=== PATIENT | female | born 1960 | race Caucasian/White ===

== ENCOUNTER 2016-07-19 11:07 | Inpatient (IN) | payer MEDICAID ==
[~2016-07-19] VITALS: Ht 165.1 cm; Wt 78.7 kg
[~2016-07-19 11:07] MED LIST: HYDR-3546 PO; LORA-655 PO; ZOLP-158 PO
[2016-07-19 11:51] LABS: Urine Bilirubin Negative (Negative); Urine Blood Negative /uL (Negative); Urine Color Yellow (Yellow); Urine Glucose Normal (Normal); Urine Ketone Negative (Negative); Urine Mucus FEW (None Seen); Urine Nitrite Negative (Negative); Urine RBC 1 /hpf (0 - 4); Urine Squamous Epithelial Cell FEW /hpf (<5); Urine Urobilinogen Normal (Negative)
[2016-07-19 11:59] LABS: Basophils # (auto) 0.1 uL; Basophils % (auto) 0.5 % (0.0-2.0); Eosinophils # (auto) 0.2 uL; Eosinophils % (auto) 1.9 % (0.0-7.0); Hematocrit 48.1 % (36.0-46.0); Hemoglobin 15.9 g/dL (12.2-16.2); Lymphocytes # (auto) 1.9 uL; Lymphocytes % (auto) 18.4 % (10.0-50.0); Mean Corpuscular Hgb Conc. 33.1 g/dL (32.0-36.0); Mean Corpuscular Volume 87.8 fL (80.0-100.0); Mean Platelet Volume 9.5 fL (7.4-10.4); Monocytes # (auto) 0.4 uL; Neutrophils # (auto) 7.8 uL; Neutrophils % (auto) 75.2 % (37.0-80.0); Platelet Count (auto) 295 10^3/uL (140-450); White Blood Cell 10.4 10^3/uL (4.4-10.8)
[2016-07-19 12:19] LABS: Albumin 3.6 g/dL (3.4-5.0); Anion Gap 8 (5-15); Aspartate Aminotransferase 21 U/L (15-37); BUN/Creatinine Ratio 14.8; Blood Urea Nitrogen 13 mg/dL (7-18); Carbon Dioxide 25 mmol/L (21-32); Chloride 108 mmol/L (98-107); GFR African American 86 mL/min; GFR Non-African American 71 mL/min; Glucose 113 mg/dL (74-106); Magnesium 2.2 mg/dL (1.6-2.6); Potassium 3.8 mmol/L (3.5-5.1); Sodium 141 mmol/L (136-145)
[2016-07-19 12:23] LABS: Alkaline Phosphatase 118 U/L (45-117); Bilirubin, Total 0.4 mg/dL (0.2-1.0); Total Protein 7.5 g/dL (6.4-8.2)
[2016-07-19] MEDS ORDERED: PANTOPRAZOLE SODIUM 40 MG/10 ML VIAL IV STA (13:10)
[2016-07-19] MEDS ORDERED: HYDROmorphone HCL 2 MG/ML VL IV ONE (13:15)
[2016-07-19] MEDS ORDERED: SODIUM CHLORIDE 0.9% 1,000 ML IV ONE (13:15)
[2016-07-19] MEDS ORDERED: ONDANSETRON HCL 4 MG/2 ML VIAL IV ONE (13:15)
[2016-07-19 14:00] LABS: INR 1.01 (0.9-1.15); Partial Thromboplastin Time 26.4 sec (22.64-33.71); Prothrombin Time 10.9 sec (9.37-12.3)
[2016-07-19] MEDS ORDERED: LACTULOSE 20Gm/30ML SOLN PO PRN (15:15)
[2016-07-19] MEDS ORDERED: cefTRIAXone 1GM/50ML D5W 50 ML IV ONE (15:15)
[2016-07-19] MEDS ORDERED: ACETAMINOPHEN 500 MG TAB PO PRN (15:15)
[2016-07-19] MEDS ORDERED: ZOLPIDEM TARTRATE 5 MG TAB PO PRN (15:15)
[2016-07-19] MEDS ORDERED: HYDROcodone-ACET 5/325MG TAB PO PRN (15:15)
[2016-07-19] MEDS ORDERED: MORPHINE SULF INJ 2 MG/ML SYRINGE 1ML IV PRN (15:15)
[2016-07-19] MEDS ORDERED: LORazepam 0.5 MG TAB PO PRN (15:15)
[2016-07-19] MEDS ORDERED: NITROGLYCERIN 0.4 MG SL TAB SL PRN (15:15)
[2016-07-19] MEDS ORDERED: ENOXAPARIN SOD 40 MG/0.4 ML SYRINGE SC ONE (15:30)
[2016-07-19] MEDS: MORPHINE SULF INJ 2 MG/ML SYRINGE 1ML IV PRN ×2 (15:47→20:30)
[2016-07-19] MEDS: SODIUM CHLORIDE 0.9% 1,000 ML IV SCH ×2 (15:47→23:11)
[2016-07-19] MEDS: ONDANSETRON HCL 4 MG/2 ML VIAL IV PRN ×2 (15:47→20:41)
[2016-07-19] MEDS ORDERED: NICOTINE 21MG/24 HR TOPICAL PATCH TD ONE (16:30)
[2016-07-19] MEDS: metroNIDAZOLE 500MG/100ML 100 ML IV SCH (18:02)
[2016-07-19 20:00] VITALS: BP 103/51
[2016-07-19 20:35] VITALS: BP 103/51
[2016-07-19] MEDS ORDERED: ALBUTEROL SULF 2.5 MG/0.5ML(0.5%) NEB SOLN NEB PRN (21:15)
[2016-07-19] MEDS: methylPREDNISolone SOD SUCC 40 MG/ML VL IV SCH (21:51)
[2016-07-19 22:00] VITALS: BP 103/51
[2016-07-20] MEDS: metroNIDAZOLE 500MG/100ML 100 ML IV SCH ×3 (00:02→11:52)
[2016-07-20] MEDS: MORPHINE SULF INJ 2 MG/ML SYRINGE 1ML IV PRN ×4 (00:47→14:04)
[2016-07-20] MEDS: ONDANSETRON HCL 4 MG/2 ML VIAL IV PRN ×4 (00:47→14:04)
[2016-07-20] MEDS ORDERED: FLUT1SPR5 (01:30)
[2016-07-20] MEDS ORDERED: OMEP20CA5 PO (01:30)
[2016-07-20] MEDS ORDERED: BUP75T PO (01:30)
[2016-07-20] MEDS ORDERED: AMOX500T86 PO (01:30)
[2016-07-20] MEDS ORDERED: NOR5T PO (01:30)
[2016-07-20 05:00] VITALS: BP 114/55
[2016-07-20 06:22] LABS: Basophils # (auto) 0 uL; Eosinophils # (auto) 0 uL; Eosinophils % (auto) 0.1 % (0.0-7.0); Hematocrit 41.9 % (36.0-46.0); Hemoglobin 13.8 g/dL (12.2-16.2); Lymphocytes # (auto) 0.8 uL; Lymphocytes % (auto) 10.8 % (10.0-50.0); Mean Corpuscular Hemoglobin 29.1 pg (28.0-32.0); Mean Corpuscular Volume 88.3 fL (80.0-100.0); Mean Platelet Volume 9.8 fL (7.4-10.4); Monocytes # (auto) 0.1 uL; Monocytes % (auto) 1.3 % (0.0-12.0); Neutrophils # (auto) 6.8 uL; Neutrophils % (auto) 87.8 % (37.0-80.0); Platelet Count (auto) 234 10^3/uL (140-450); Red Cell Distribution Width 13.7 % (11.6-16.0); White Blood Cell 7.8 10^3/uL (4.4-10.8)
[2016-07-20 06:37] LABS: Potassium 3.9 mmol/L (3.5-5.1)
[2016-07-20 06:49] LABS: Albumin 3.3 g/dL (3.4-5.0); BUN/Creatinine Ratio 9.9; Bilirubin, Total 0.3 mg/dL (0.2-1.0); Calcium 8.5 mg/dL (8.5-10.1); Total Protein 6.5 g/dL (6.4-8.2)
[2016-07-20] MEDS: IPRATROPIUM BROM 0.5 MG/2.5ML INH SOL NEB SCH ×2 (06:58→11:51)
[2016-07-20] MEDS: ALBUTEROL SULF 2.5 MG/0.5ML(0.5%) NEB SOLN NEB SCH ×2 (06:58→11:51)
[2016-07-20] MEDS: SODIUM CHLORIDE 0.9% 1,000 ML IV SCH (07:09)
[2016-07-20] MEDS: methylPREDNISolone SOD SUCC 40 MG/ML VL IV SCH (08:54)
[2016-07-20 09:00] VITALS: BP 112/59
[2016-07-20] MEDS ORDERED: cefTRIAXone 1GM/50ML D5W 50 ML IV SCH (09:00)
[2016-07-20] MEDS ORDERED: ENOXAPARIN SOD 40 MG/0.4 ML SYRINGE SC SCH (10:00)
[2016-07-20] MEDS ORDERED: PANTOPRAZOLE 40 MG TAB PO SCH (10:00)
[2016-07-20] MEDS ORDERED: NICOTINE 21MG/24 HR TOPICAL PATCH TD SCH (10:00)
[2016-07-20 13:00] VITALS: BP 114/63
[2016-07-20 13:44] VITALS: BP 112/59
[2016-07-20 17:00] VITALS: BP 103/51
[2016-07-20 17:10] VITALS: BP 103/51
== END 2016-07-20 18:42 | disposition home or self-care (01) | DRG 249 ==
LOC: ER 11:07 → TELE 11:08 → TELE-CENTR 19:41
PROVIDERS: ADMIT Internal Medicine; ATTEND Internal Medicine
DX: K52.9 Noninfective gastroenteritis and colitis, unspecified (principal); J44.1 Chronic obstructive pulmonary disease with (acute) exacerbation; E78.5 Hyperlipidemia, unspecified; F17.210 Nicotine dependence, cigarettes, uncomplicated; F41.9 Anxiety disorder, unspecified; H66.90 Otitis media, unspecified, unspecified ear; K21.9 Gastro-esophageal reflux disease without esophagitis; K42.9 Umbilical hernia without obstruction or gangrene; Z80.0 Family history of malignant neoplasm of digestive organs; Z82.49 Family history of ischemic heart disease and other diseases of the circulatory system; Z85.068 Personal history of other malignant neoplasm of small intestine; Z83.3 Family history of diabetes mellitus; Z87.11 Personal history of peptic ulcer disease; Z90.710 Acquired absence of both cervix and uterus; Z88.8 Allergy status to other drugs, medicaments and biological substances; Z91.018 Allergy to other foods; Z72.0 Tobacco use
CPT/HCPCS: 36415; 71010; 74176; 80053; 81001; 82150; 82270; 82378; 83690; 83735; 84484; 85025; 85610; 85652; 85730; 86141; 87493; 93005; 94640; 94761; 96361; 96365; 96372; 96375; C9113; J0696; J2405; J3490

== ENCOUNTER 2016-09-14 07:24 | Emergency (ER) | payer MEDICAID ==
[~2016-09-14] VITALS: Ht 165.1 cm; Wt 71.7 kg
[~2016-09-14 07:24] MED LIST changes: +AMOX500T86 PO; +BUP75T PO; +FLUT1SPR5; +HYDR-4663 PO; +OMEP20CA74 PO
[2016-09-14 07:38] VITALS: BP 135/87
[2016-09-14] MEDS ORDERED: PROMETHAZINE HCL 25 MG/ML 1ML IM ONE (09:30)
[2016-09-14] MEDS ORDERED: MORPHINE SULFATE 10 MG/ML INJ 1ML SDV IM ONE (09:30)
== END 2016-09-14 10:06 | disposition home or self-care (01) ==
LOC: ER 07:28
DX: S39.012A Strain of muscle, fascia and tendon of lower back, initial encounter (principal); F17.210 Nicotine dependence, cigarettes, uncomplicated; E78.5 Hyperlipidemia, unspecified; Z87.11 Personal history of peptic ulcer disease; Z90.710 Acquired absence of both cervix and uterus; Z88.6 Allergy status to analgesic agent; Z88.8 Allergy status to other drugs, medicaments and biological substances; V43.52XA Car driver injured in collision with other type car in traffic accident, initial encounter; Y93.89 Activity, other specified; Y99.8 Other external cause status; Y92.488 Other paved roadways as the place of occurrence of the external cause
CPT/HCPCS: 96372; 99284; J2270; J2550

== ENCOUNTER 2016-09-18 07:05 | Emergency (ER) | payer MEDICAID ==
[~2016-09-18] VITALS: Ht 157.5 cm; Wt 73.0 kg
[2016-09-18 07:21] VITALS: BP 113/87
[2016-09-18] MEDS ORDERED: MORPHINE SULFATE 4 MG/ML SYRG IM ONE (08:00)
[2016-09-18] MEDS ORDERED: ONDANSETRON ODT 4 MG TAB PO ONE (08:15)
== END 2016-09-18 08:58 | disposition home or self-care (01) ==
LOC: ER 07:05
DX: G89.29 Other chronic pain (principal); M54.5 Low back pain; F17.210 Nicotine dependence, cigarettes, uncomplicated; Z88.8 Allergy status to other drugs, medicaments and biological substances; Z87.11 Personal history of peptic ulcer disease
CPT/HCPCS: 96372; 99283; J2270; Q0162

== ENCOUNTER 2016-09-25 07:34 | Inpatient (IN) | payer MEDICAID ==
[~2016-09-25] VITALS: Ht 165.1 cm; Wt 76.0 kg
[2016-09-25 08:17] LABS: Basophils # (auto) 0 uL; Basophils % (auto) 0.4 % (0.0-2.0); CONDITION Y; Eosinophils # (auto) 0.2 uL; Eosinophils % (auto) 1.5 % (0.0-7.0); Hematocrit 45.7 % (36.0-46.0); Hemoglobin 15.5 g/dL (12.2-16.2); Lymphocytes # (auto) 2.3 uL; Lymphocytes % (auto) 22.2 % (10.0-50.0); Mean Corpuscular Hemoglobin 29.8 pg (28.0-32.0); Mean Corpuscular Hgb Conc. 33.9 g/dL (32.0-36.0); Mean Corpuscular Volume 87.9 fL (80.0-100.0); Mean Platelet Volume 9.1 fL (7.4-10.4); Monocytes # (auto) 0.6 uL; Neutrophils # (auto) 7.2 uL; Neutrophils % (auto) 69.9 % (37.0-80.0); Platelet Count (auto) 296 10^3/uL (140-450); Red Cell Distribution Width 13.3 % (11.6-16.0); White Blood Cell 10.3 10^3/uL (4.4-10.8)
[2016-09-25 08:45] LABS: Albumin 3.7 g/dL (3.4-5.0); Bilirubin, Total 0.4 mg/dL (0.2-1.0); Calcium 8.9 mg/dL (8.5-10.1); Total Protein 7.4 g/dL (6.4-8.2)
[2016-09-25 09:17] LABS: Urine RBC None Seen /hpf (0 - 4)
[2016-09-25 09:37] LABS: Urine Bilirubin Negative (Negative); Urine Blood Negative /uL (Negative); Urine Color Yellow (Yellow); Urine Glucose Normal (Normal); Urine Ketone Negative (Negative); Urine Nitrite Negative (Negative); Urine Squamous Epithelial Cell FEW /hpf (<5); Urine Urobilinogen Normal (Negative); Urine pH 5.5 (5.0-8.0)
[2016-09-25] MEDS ORDERED: NALBUPHINE HCL 10 MG/1ml INJECTION IV ONE (10:15)
[2016-09-25] MEDS ORDERED: ONDANSETRON HCL 4 MG/2 ML VIAL IV ONE (10:15)
[2016-09-25] MEDS ORDERED: HYDROmorphone HCL 2 MG/ML VL IV ONE (12:30)
[2016-09-25] MEDS ORDERED: ONDANSETRON HCL 4 MG/2 ML VIAL ONE (14:10)
[2016-09-25] MEDS: SODIUM CHLORIDE 0.9% 1,000 ML IV SCH (15:13)
[2016-09-25] MEDS ORDERED: metroNIDAZOLE 500MG/100ML 100 ML IV ONE (15:15)
[2016-09-25] MEDS ORDERED: cefTRIAXone 1GM/50ML D5W 50 ML IV ONE (15:15)
[2016-09-25] MEDS ORDERED: ACETAMINOPHEN 325 MG TAB PO PRN (15:15)
[2016-09-25] MEDS ORDERED: LORazepam 0.5 MG TAB PO PRN (15:15)
[2016-09-25] MEDS ORDERED: MORPHINE SULF INJ 2 MG/ML SYRINGE 1ML IV PRN (15:15)
[2016-09-25] MEDS ORDERED: PANTOPRAZOLE 40 MG TAB PO SCH (15:15)
[2016-09-25] MEDS ORDERED: NITROGLYCERIN 0.4 MG SL TAB SL PRN (15:15)
[2016-09-25] MEDS: buPROPion HCL 75 MG TAB PO SCH (15:18)
[2016-09-25] MEDS: MULTIPLE VITAMIN TAB PO SCH (15:47)
[2016-09-25] MEDS: MORPHINE SULF INJ 2 MG/ML SYRINGE 1ML IV PRN ×2 (16:20→20:41)
[2016-09-25 17:39] LABS: INR 1.03 (0.9-1.15); Prothrombin Time 11.2 sec (9.37-12.3)
[2016-09-25 18:31] LABS: Hematocrit 43.3 % (36.0-46.0); Hemoglobin 14.4 g/dL (12.2-16.2)
[2016-09-25] MEDS: metroNIDAZOLE 500MG/100ML 100 ML IV SCH (21:58)
[2016-09-25] MEDS: PANTOPRAZOLE 40 MG TAB PO SCH (21:59)
[2016-09-25] MEDS ORDERED: FAMOTIDINE 20 MG TAB PO SCH (22:00)
[2016-09-25] MEDS: FLUTICASONE PROP NASAL SPR 0.05 % (50MCG) 16GM EACHNOSTRI SCH (22:25)
[2016-09-25 22:40] VITALS: BP 110/66
[2016-09-25] MEDS: ZOLPIDEM TARTRATE 5 MG TAB PO PRN (23:50)
[2016-09-26 00:10] VITALS: BP 110/66
[2016-09-26] MEDS: MORPHINE SULF INJ 2 MG/ML SYRINGE 1ML IV PRN ×5 (02:05→23:20)
[2016-09-26] MEDS: HYDROcodone-ACET 5/325MG TAB PO PRN ×2 (04:36→16:32)
[2016-09-26 05:14] VITALS: BP 121/69
[2016-09-26] MEDS: metroNIDAZOLE 500MG/100ML 100 ML IV SCH ×3 (06:06→21:17)
[2016-09-26 07:20] LABS: Basophils # (auto) 0 uL; Basophils % (auto) 0.1 % (0.0-2.0); CONDITION Y; Eosinophils # (auto) 0.2 uL; Eosinophils % (auto) 2.1 % (0.0-7.0); Hematocrit 42.1 % (36.0-46.0); Hemoglobin 14.2 g/dL (12.2-16.2); Lymphocytes # (auto) 2.2 uL; Lymphocytes % (auto) 25.8 % (10.0-50.0); Mean Corpuscular Hemoglobin 29.9 pg (28.0-32.0); Mean Corpuscular Hgb Conc. 33.8 g/dL (32.0-36.0); Mean Corpuscular Volume 88.5 fL (80.0-100.0); Mean Platelet Volume 9.2 fL (7.4-10.4); Monocytes # (auto) 0.7 uL; Monocytes % (auto) 7.7 % (0.0-12.0); Neutrophils # (auto) 5.6 uL; Neutrophils % (auto) 64.3 % (37.0-80.0); Platelet Count (auto) 271 10^3/uL (140-450); Red Cell Distribution Width 13.6 % (11.6-16.0); White Blood Cell 8.7 10^3/uL (4.4-10.8)
[2016-09-26] MEDS: SODIUM CHLORIDE 0.9% 1,000 ML IV SCH (07:53)
[2016-09-26 08:06] LABS: Albumin 3.3 g/dL (3.4-5.0); Bilirubin, Total 0.4 mg/dL (0.2-1.0); Calcium 8.8 mg/dL (8.5-10.1); Potassium 3.9 mmol/L (3.5-5.1); Total Protein 6.7 g/dL (6.4-8.2)
[2016-09-26] MEDS: cefTRIAXone 1GM/50ML D5W 50 ML IV SCH (08:49)
[2016-09-26 08:59] VITALS: BP 101/51
[2016-09-26] MEDS: FLUTICASONE PROP NASAL SPR 0.05 % (50MCG) 16GM EACHNOSTRI SCH ×2 (10:00→21:17)
[2016-09-26] MEDS: MULTIPLE VITAMIN TAB PO SCH (10:00)
[2016-09-26] MEDS: buPROPion HCL 75 MG TAB PO SCH (10:00)
[2016-09-26] MEDS: PANTOPRAZOLE 40 MG TAB PO SCH ×2 (10:00→21:17)
[2016-09-26] MEDS: BOOST PLUS 8 ounce PO SCH ×2 (11:51→18:00)
[2016-09-26] MEDS: ONDANSETRON HCL 4 MG/2 ML VIAL IV PRN ×3 (11:51→23:21)
[2016-09-26 13:00] VITALS: BP 105/72
[2016-09-26] MEDS ORDERED: fentaNYL CITRATE 100 MCG/2 ML VL ONE (13:09)
[2016-09-26] MEDS ORDERED: PROPOFOL 10 MG/ML 20 ML IV ONE (13:10)
[2016-09-26] MEDS ORDERED: MIDAZOLAM HCL 1MG/1ML-2 ML VIAL ONE (13:10)
[2016-09-26] MEDS ORDERED: hydrALAZINE HCL 20 MG/ML VL IV PRN (13:45)
[2016-09-26] MEDS ORDERED: ONDANSETRON HCL 4 MG/2 ML VIAL IV ONE (13:45)
[2016-09-26] MEDS ORDERED: ePHEDrine SULFATE 50 MG/ML AMP IV PRN (13:45)
[2016-09-26] MEDS ORDERED: fentaNYL CITRATE 100 MCG/2 ML VL IV ONE (14:00)
[2016-09-26 17:00] VITALS: BP 116/71
[2016-09-26 21:30] VITALS: BP 116/79
[2016-09-26] MEDS: ZOLPIDEM TARTRATE 5 MG TAB PO PRN (21:51)
[2016-09-27] MEDS: SODIUM CHLORIDE 0.9% 1,000 ML IV SCH (00:34)
[2016-09-27 05:00] VITALS: BP 147/59
[2016-09-27] MEDS: MORPHINE SULF INJ 2 MG/ML SYRINGE 1ML IV PRN ×2 (05:02→09:23)
[2016-09-27] MEDS: ONDANSETRON HCL 4 MG/2 ML VIAL IV PRN ×2 (05:03→09:22)
[2016-09-27] MEDS: metroNIDAZOLE 500MG/100ML 100 ML IV SCH ×2 (05:34→14:00)
[2016-09-27 08:30] VITALS: BP 96/65
[2016-09-27] MEDS: FLUTICASONE PROP NASAL SPR 0.05 % (50MCG) 16GM EACHNOSTRI SCH (09:08)
[2016-09-27] MEDS: cefTRIAXone 1GM/50ML D5W 50 ML IV SCH (09:08)
[2016-09-27] MEDS: PANTOPRAZOLE 40 MG TAB PO SCH (09:09)
[2016-09-27] MEDS: buPROPion HCL 75 MG TAB PO SCH (09:09)
[2016-09-27] MEDS: MULTIPLE VITAMIN TAB PO SCH (09:09)
[2016-09-27] MEDS: BOOST PLUS 8 ounce PO SCH ×2 (09:13→12:00)
[2016-09-27 09:35] LABS: Basophils # (auto) 0.1 uL; CONDITION Y; Eosinophils # (auto) 0.1 uL; Eosinophils % (auto) 1.8 % (0.0-7.0); Hematocrit 42.2 % (36.0-46.0); Hemoglobin 14.1 g/dL (12.2-16.2); Lymphocytes # (auto) 1.8 uL; Lymphocytes % (auto) 24.2 % (10.0-50.0); Mean Corpuscular Hemoglobin 29.6 pg (28.0-32.0); Mean Corpuscular Hgb Conc. 33.4 g/dL (32.0-36.0); Mean Corpuscular Volume 88.5 fL (80.0-100.0); Mean Platelet Volume 9.2 fL (7.4-10.4); Monocytes # (auto) 0.5 uL; Monocytes % (auto) 6.7 % (0.0-12.0); Neutrophils # (auto) 4.9 uL; Neutrophils % (auto) 66.3 % (37.0-80.0); Platelet Count (auto) 224 10^3/uL (140-450); Red Cell Distribution Width 13.3 % (11.6-16.0); White Blood Cell 7.4 10^3/uL (4.4-10.8)
[2016-09-27 09:56] LABS: Albumin 3.3 g/dL (3.4-5.0); BUN/Creatinine Ratio 15.2; Bilirubin, Total 0.3 mg/dL (0.2-1.0); Calcium 8.6 mg/dL (8.5-10.1); Potassium 3.6 mmol/L (3.5-5.1); Total Protein 6.6 g/dL (6.4-8.2)
[2016-09-27 12:00] VITALS: BP 114/57
[2016-09-27] MEDS ORDERED: PANT40TA2 PO (13:02)
[2016-09-27] MEDS ORDERED: IPRIH INH (14:26)
[2016-09-27 15:42] VITALS: BP 96/65
[2016-09-27 16:45] VITALS: BP 124/73
[2016-09-29 16:06] LABS: Endomysial IgA Antibody Negative (Negative)
[2016-10-02 21:43] LABS: Fecal Fats Neutral Normal (.); Fecal Fats Total Normal (.)
== END 2016-09-27 16:05 | disposition home or self-care (01) | DRG 251 ==
LOC: ER 07:34 → TELE 07:35 → TELE-WESTW 22:29 → WEST WING 09-27 01:33
PROVIDERS: ADMIT Internal Medicine; ATTEND Nurse Practitioner Acute Care
PROC: 0DB68ZX Excision of Stomach, Via Natural or Artificial Opening Endoscopic, Diagnostic (ICD-10-PCS; 2016-09-26)
PROC: 0DB98ZX Excision of Duodenum, Via Natural or Artificial Opening Endoscopic, Diagnostic (ICD-10-PCS; principal; 2016-09-26 13:10)
DX: R10.9 Unspecified abdominal pain (principal); E44.0 Moderate protein-calorie malnutrition; K27.9 Peptic ulcer, site unspecified, unspecified as acute or chronic, without hemorrhage or perforation; E78.5 Hyperlipidemia, unspecified; F41.9 Anxiety disorder, unspecified; G89.29 Other chronic pain; K52.9 Noninfective gastroenteritis and colitis, unspecified; F17.210 Nicotine dependence, cigarettes, uncomplicated; G89.4 Chronic pain syndrome; Z80.0 Family history of malignant neoplasm of digestive organs; Z82.49 Family history of ischemic heart disease and other diseases of the circulatory system; Z83.3 Family history of diabetes mellitus; Z85.068 Personal history of other malignant neoplasm of small intestine; Z90.49 Acquired absence of other specified parts of digestive tract; Z88.6 Allergy status to analgesic agent; Z88.8 Allergy status to other drugs, medicaments and biological substances; Z90.710 Acquired absence of both cervix and uterus; Z71.89 Other specified counseling; Z68.27 Body mass index [BMI] 27.0-27.9, adult
CPT/HCPCS: 36415; 43239; 71010; 72125; 74176; 80053; 80307; 81001; 82705; 82784; 83516; 83690; 85014; 85018; 85025; 85610; 86141; 86255; 87045; 87493; 87899; 93005; 96365; 96368; 96375; J0696; J2250; J2405; J2704; J3490

== ENCOUNTER 2017-05-27 03:23 | Emergency (ER) | payer MEDICAID ==
[~2017-05-27] VITALS: Ht 165.1 cm; Wt 71.7 kg
[~2017-05-27 03:23] MED LIST changes: -HYDR-4663 PO; +HYDR-4683 PO; +IPRIH INH; +PANT40TA2 PO
[2017-05-27 03:36] VITALS: BP 119/70
[2017-05-27 04:35] LABS: Basophils # (auto) 0 uL; Basophils % (auto) 0.2 % (0.0-2.0); Eosinophils # (auto) 0.2 uL; Eosinophils % (auto) 1.8 % (0.0-7.0); Hematocrit 41.4 % (36.0-46.0); Lymphocytes # (auto) 2.4 uL; Mean Corpuscular Hemoglobin 29.5 pg (28.0-32.0); Mean Corpuscular Hgb Conc. 33.9 g/dL (32.0-36.0); Monocytes # (auto) 1.3 uL; Monocytes % (auto) 12.4 % (0.0-12.0); Neutrophils # (auto) 6.8 uL; Neutrophils % (auto) 63.6 % (37.0-80.0); Platelet Count (auto) 196 10^3/uL (140-450); Red Blood Cells 4.76 10^6/uL (4.0-5.20); Red Cell Distribution Width 13.3 % (11.8-14.3); White Blood Cell 10.7 10^3/uL (4.4-10.8)
[2017-05-27 04:39] LABS: Urine Bacteria NONE SEEN /hpf (None Seen); Urine Blood 1+ /uL (Negative); Urine Mucus FEW (None Seen); Urine WBC 1 /hpf (0 - 5)
[2017-05-27 04:55] LABS: INR 0.98 (0.9-1.15); Partial Thromboplastin Time 28.9 sec (22.64-33.71); Prothrombin Time 10.7 sec (9.37-12.3)
[2017-05-27 05:08] LABS: Alanine Aminotransferase 30 U/L (13-56); Albumin 3.5 g/dL (3.4-5.0); Alkaline Phosphatase 142 U/L (45-117); Amylase 34 U/L (25-115); Anion Gap 9 (5-15); Aspartate Aminotransferase 28 U/L (15-37); Bilirubin, Total 0.5 mg/dL (0.2-1.0); Blood Urea Nitrogen 11 mg/dL (7-18); Calcium 8.7 mg/dL (8.5-10.1); Carbon Dioxide 23 mmol/L (21-32); Chloride 104 mmol/L (98-107); GFR African American 131 mL/min; GFR Non-African American 108 mL/min; Glucose 83 mg/dL (74-106); Lipase 188 U/L (73-393); Magnesium 2.4 mg/dL (1.6-2.6); Potassium 4.2 mmol/L (3.5-5.1); Sodium 136 mmol/L (136-145); Total Protein 7.5 g/dL (6.4-8.2)
== END 2017-05-27 05:49 | disposition left against medical advice (07) ==
LOC: ER 03:24
DX: R06.02 Shortness of breath (principal); Z53.21 Procedure and treatment not carried out due to patient leaving prior to being seen by health care provider
CPT/HCPCS: 36415; 71045; 74176; 80053; 81001; 82150; 83690; 83735; 83880; 84484; 85025; 85610; 85730; 93005

== ENCOUNTER 2017-06-17 09:15 | Emergency (ER) | payer MEDICAID ==
[~2017-06-17] VITALS: Ht 165.1 cm; Wt 74.4 kg
[2017-06-17 09:53] VITALS: BP 154/78
[2017-06-17 09:54] LABS: Urine Bacteria NONE SEEN /hpf (None Seen); Urine Blood Negative /uL (Negative); Urine Mucus FEW (None Seen); Urine Specific Gravity 1.028 (1.001-1.035); Urine WBC 1 /hpf (0 - 5)
[2017-06-17] MEDS ORDERED: ONDANSETRON ODT 4 MG TAB PO ONE (10:15)
[2017-06-17] MEDS ORDERED: NALBUPHINE HCL 10 MG/1ml INJECTION IM ONE (10:15)
== END 2017-06-17 11:19 | disposition home or self-care (01) ==
LOC: ER 09:15
DX: M17.11 Unilateral primary osteoarthritis, right knee (principal); E78.5 Hyperlipidemia, unspecified; F17.210 Nicotine dependence, cigarettes, uncomplicated; Z87.11 Personal history of peptic ulcer disease; Z88.6 Allergy status to analgesic agent; Z88.8 Allergy status to other drugs, medicaments and biological substances; Z90.710 Acquired absence of both cervix and uterus
CPT/HCPCS: 73562; 81001; 96372; 99285; J2300; Q0162

== ENCOUNTER 2017-06-18 15:29 | Emergency (ER) | payer MEDICAID ==
[~2017-06-18] VITALS: Ht 167.6 cm; Wt 73.0 kg
[2017-06-18 17:21] VITALS: BP 132/68
[2017-06-18] MEDS ORDERED: ACETAMINOPHEN 500 MG TAB PO ONE (18:00)
[2017-06-18] MEDS ORDERED: ONDANSETRON ODT 4 MG TAB PO ONE (18:00)
== END 2017-06-18 18:41 | disposition home or self-care (01) ==
LOC: EDBD 15:29 → EDUNIT# 15:29 → ER 15:33
DX: M54.9 Dorsalgia, unspecified (principal); F17.210 Nicotine dependence, cigarettes, uncomplicated; F12.10 Cannabis abuse, uncomplicated; Z90.710 Acquired absence of both cervix and uterus; Z88.8 Allergy status to other drugs, medicaments and biological substances; V49.49XA Driver injured in collision with other motor vehicles in traffic accident, initial encounter; Y93.89 Activity, other specified; Y99.8 Other external cause status; Y92.410 Unspecified street and highway as the place of occurrence of the external cause
CPT/HCPCS: 72070; 99284; Q0162

== ENCOUNTER 2018-05-14 00:55 | Inpatient (IN) | payer MEDICAID ==
[~2018-05-14] VITALS: Ht 165.1 cm; Wt 72.6 kg
[2018-05-14] MEDS ORDERED: MORPHINE SULFATE 4 MG/ML SYR/VIAL IV ONE ×2 (01:30→02:45)
[2018-05-14] MEDS ORDERED: LORazepam 2MG/ML-1ML VIAL IV ONE (01:30)
[2018-05-14 01:37] LABS: Basophils # (auto) 0.1 uL; Basophils % (auto) 0.5 % (0.0-2.0); Eosinophils # (auto) 0.2 uL; Eosinophils % (auto) 1.6 % (0.0-7.0); Hematocrit 46.9 % (36.0-46.0); Hemoglobin 15.9 g/dL (12.2-16.2); Lymphocytes # (auto) 2.5 uL; Lymphocytes % (auto) 23.3 % (10.0-50.0); Mean Corpuscular Hemoglobin 30.3 pg (28.0-32.0); Mean Corpuscular Hgb Conc. 33.9 g/dL (32.0-36.0); Mean Corpuscular Volume 89.6 fL (80.0-100.0); Monocytes # (auto) 0.6 uL; Monocytes % (auto) 5.9 % (0.0-12.0); Neutrophils # (auto) 7.5 uL; Neutrophils % (auto) 68.7 % (37.0-80.0); Platelet Count (auto) 239 10^3/uL (140-450); Red Blood Cells 5.24 10^6/uL (4.0-5.20); Red Cell Distribution Width 13.7 % (11.8-14.3); White Blood Cell 10.9 10^3/uL (4.4-10.8)
[2018-05-14 01:42] LABS: Urine Amorphous Crystal FEW /hpf (None Seen); Urine Bacteria FEW /hpf (None Seen); Urine Blood Negative /uL (Negative); Urine Specific Gravity 1.003 (1.001-1.035); Urine WBC <1 /hpf (0 - 5)
[2018-05-14 01:54] LABS: INR 0.97 (0.9-1.15)
[2018-05-14 01:57] LABS: Alanine Aminotransferase 33 U/L (13-56); Albumin 3.6 g/dL (3.4-5.0); Anion Gap 6 (5-15); Aspartate Aminotransferase 25 U/L (15-37); BUN/Creatinine Ratio 19.3; Blood Urea Nitrogen 16 mg/dL (7-18); Calcium 8.6 mg/dL (8.5-10.1); Carbon Dioxide 29 mmol/L (21-32); Chloride 108 mmol/L (98-107); GFR African American 91 mL/min; GFR Non-African American 76 mL/min; Glucose 97 mg/dL (74-106); Magnesium 2.4 mg/dL (1.6-2.6); Potassium 3.7 mmol/L (3.5-5.1); Sodium 143 mmol/L (136-145)
[2018-05-14 01:59] LABS: Alcohol, Urine < 3.0 mg/dL (0-5); Amphetamine Screen, Urine NEGATIVE (NEGATIVE); Barbiturate Scree,Urine NEGATIVE (NEGATIVE); Benzodiazephine Screen, Urine NEGATIVE (NEGATIVE); Cannabinoid Screen, Urine NEGATIVE (NEGATIVE); Cocaine Screen, Urine NEGATIVE (NEGATIVE); Opiate Scree,Urine NEGATIVE (NEGATIVE); Phencyclidine Screen, Urine NEGATIVE (NEGATIVE)
[2018-05-14 02:00] LABS: Alkaline Phosphatase 138 U/L (45-117); Bilirubin, Total 0.3 mg/dL (0.2-1.0); Total Protein 7.6 g/dL (6.4-8.2)
[2018-05-14] MEDS ORDERED: ONDANSETRON HCL 4 MG/2 ML VIAL IV ONE (02:45)
[2018-05-14] MEDS ORDERED: TEMAZEPAM 15 MG CAP PO PRN (05:45)
[2018-05-14] MEDS ORDERED: NITROGLYCERIN 0.4 MG SL TAB SL PRN (05:45)
[2018-05-14] MEDS ORDERED: ACETAMINOPHEN 325 MG TAB PO PRN (05:45)
[2018-05-14] MEDS ORDERED: MORPHINE SULFATE 4 MG/ML SYR/VIAL IV PRN (05:45)
[2018-05-14] MEDS ORDERED: LORazepam 0.5 MG TAB PO PRN (07:00)
[2018-05-14] MEDS: ONDANSETRON HCL 4 MG/2 ML VIAL IV PRN ×2 (09:13→13:58)
[2018-05-14] MEDS: HYDROcodone-ACET 5/325MG TAB PO PRN ×2 (09:14→13:58)
[2018-05-14] MEDS ORDERED: buPROPion HCL 75 MG TAB PO SCH (10:00)
[2018-05-14] MEDS ORDERED: ENOXAPARIN SOD 40 MG/0.4 ML SYRINGE SC SCH (10:00)
[2018-05-14] MEDS ORDERED: ASPirin 81 mg TAB PO SCH (10:00)
[2018-05-14] MEDS ORDERED: FAMOTIDINE 20 MG TAB PO SCH (10:00)
[2018-05-14 13:00] VITALS: BP 118/67
--- NOTE | 2018-05-14 13:00 | NUR ---
CAME ON WC FROM ER, ALERT AND ORIENTED X4, NOT IN DISTRESS, WHEEZING SOUNDS IN BILATERAL LUNG LOBED, RR=18 KDC=464 IN RA, SR R=68 ON TELE MONITOR, ABDOMEN SOFT WITH ACTIVE BS, LAST BM= THIS MORNING IN ER REPORTED, TOLERATED 100% OF LUNCH TRAY, SKIN INTACT WARM TO TOUCH, RADIAL AND PEDAL PULSES PALPABLE, CAP REFILL<3 SECONDS, C/O BILATERAL UPPER ABDOMINAL PAIN L=4/10, HEAD OF BED ELEVATED, BED ON LOWER POSITION, RAILS UP X2, CALL LIGHT WITHIN REACH, PENDING ECHO AND CARDIAC CONSULT, WILL CONTINUE MONITORING.
--- NOTE | 2018-05-14 14:54 | NUR ---
SMOKING CONSENT WAS PROVIDED REQUESTED, SIGNED AND ON CHART, WENT OUT OF UNIT FOR SMOKING, WILL CONTINUE FOLLOW UP.
[2018-05-14 17:34] VITALS: BP 112/55
--- NOTE | 2018-05-14 17:34 | NUR ---
CARDICA CONSULT WAS DONE AND CLEARED TO D/C HOME TODAY, REFUSED SS CONSULT FOR HOME HEALTH, PENDING D/C PROCESS.
[2018-05-14 17:38] VITALS: BP 122/72
--- NOTE | 2018-05-14 17:48 | NUR ---
BACK AND FORCE FOR SMOKING, NOT IN DISTRESS, DENIED PAIN, REFUSED TO WAIT FOR D/C PAPER AND INFORMATION, WANTED TO GO [facility] AND BE THERE AT 1800, SIGNED AMA AND LEFT HOME WALKING.
[2018-05-14] MEDS ORDERED: ATORVASTATIN 20 MG TAB PO SCH (22:00)
--- NOTE | 2018-05-15 11:23 | NUR ---
ORDER FAXED TO [facility] AND TO [facility].
== END 2018-05-14 17:40 | disposition left against medical advice (07) | DRG 201 ==
LOC: EDBD 00:55 → ER 01:00 → TELE 05:36 → TELE-WESTW 12:59
PROVIDERS: ADMIT Nurse Practitioner; ATTEND Internal Medicine
DX: I48.0 Paroxysmal atrial fibrillation (principal); E78.5 Hyperlipidemia, unspecified; R07.9 Chest pain, unspecified; I25.2 Old myocardial infarction; K21.9 Gastro-esophageal reflux disease without esophagitis; Z53.21 Procedure and treatment not carried out due to patient leaving prior to being seen by health care provider; F12.90 Cannabis use, unspecified, uncomplicated; G47.00 Insomnia, unspecified; F41.9 Anxiety disorder, unspecified; F17.210 Nicotine dependence, cigarettes, uncomplicated; Z80.0 Family history of malignant neoplasm of digestive organs; Z82.49 Family history of ischemic heart disease and other diseases of the circulatory system; Z83.3 Family history of diabetes mellitus; Z85.028 Personal history of other malignant neoplasm of stomach; Z87.11 Personal history of peptic ulcer disease; Z90.710 Acquired absence of both cervix and uterus; Z88.8 Allergy status to other drugs, medicaments and biological substances
CPT/HCPCS: 36415; 71045; 80053; 80307; 81001; 83735; 83880; 84484; 85025; 85379; 85610; 85730; 93005; 93306; 94761; 96374; 96375; G0378; J2405

== ENCOUNTER 2018-06-23 15:25 | Inpatient (IN) | payer MEDICAID ==
[~2018-06-23] VITALS: Ht 165.1 cm; Wt 76.0 kg
[~2018-06-23 15:25] MED LIST changes: -AMOX500T86 PO; -FLUT1SPR5; -HYDR-3546 PO; -PANT40TA2 PO
[2018-06-23 16:14] LABS: Basophils # (auto) 0 uL; Basophils % (auto) 0.2 % (0.0-2.0); Eosinophils # (auto) 0.2 uL; Eosinophils % (auto) 1.8 % (0.0-7.0); Hematocrit 45.1 % (36.0-46.0); Hemoglobin 15.3 g/dL (12.2-16.2); Lymphocytes # (auto) 1.9 uL; Lymphocytes % (auto) 17.7 % (10.0-50.0); Mean Corpuscular Hemoglobin 30.3 pg (28.0-32.0); Mean Corpuscular Hgb Conc. 33.8 g/dL (32.0-36.0); Mean Corpuscular Volume 89.6 fL (80.0-100.0); Monocytes # (auto) 0.6 uL; Monocytes % (auto) 6.1 % (0.0-12.0); Neutrophils # (auto) 7.8 uL; Neutrophils % (auto) 74.2 % (37.0-80.0); Platelet Count (auto) 225 10^3/uL (140-450); Red Blood Cells 5.03 10^6/uL (4.0-5.20); Red Cell Distribution Width 13.5 % (11.8-14.3); White Blood Cell 10.5 10^3/uL (4.4-10.8)
[2018-06-23] MEDS ORDERED: MORPHINE SULFATE 4 MG/ML SYR/VIAL IV ONE (16:15)
[2018-06-23 16:23] LABS: Albumin 3.9 g/dL (3.4-5.0); Anion Gap 7 (5-15); Blood Urea Nitrogen 13 mg/dL (7-18); Calcium 8.8 mg/dL (8.5-10.1); Carbon Dioxide 27 mmol/L (21-32); Chloride 108 mmol/L (98-107); Glucose 98 mg/dL (74-106); Sodium 142 mmol/L (136-145)
[2018-06-23 16:29] LABS: Alanine Aminotransferase 30 U/L (13-56); Alkaline Phosphatase 134 U/L (45-117); Aspartate Aminotransferase 22 U/L (15-37); BUN/Creatinine Ratio 20.3; Bilirubin, Total 0.3 mg/dL (0.2-1.0); GFR African American 123 mL/min; GFR Non-African American 102 mL/min; Total Protein 7.5 g/dL (6.4-8.2)
[2018-06-23 17:45] LABS: INR 0.97 (0.9-1.15)
[2018-06-23] MEDS ORDERED: LORazepam 0.5 MG TAB PO PRN (21:00)
[2018-06-23] MEDS ORDERED: TEMAZEPAM 15 MG CAP PO PRN (21:00)
[2018-06-23] MEDS ORDERED: NITROGLYCERIN 0.4 MG SL TAB SL PRN (21:00)
[2018-06-23] MEDS ORDERED: MORPHINE SULF INJ 2 MG/ML SYRINGE 1ML IV PRN (21:00)
[2018-06-23] MEDS ORDERED: ACETAMINOPHEN 325 MG TAB PO PRN (21:00)
[2018-06-23] MEDS ORDERED: PRAVASTATIN SODIUM 20 MG TAB PO SCH (22:00)
[2018-06-23 22:26] VITALS: BP 146/80
[2018-06-23] MEDS: IPRATROPIUM BROM 0.5 MG/2.5ML INH SOL NEB PRN (22:35)
[2018-06-23] MEDS: FAMOTIDINE 20 MG TAB PO SCH (22:36)
[2018-06-23] MEDS: ONDANSETRON HCL 4 MG/2 ML VIAL IV PRN (22:36)
[2018-06-23 23:10] VITALS: BP 146/80
[2018-06-24 00:43] VITALS: BP 146/80
[2018-06-24 05:17] VITALS: BP 132/84
[2018-06-24 06:08] LABS: Basophils # (auto) 0 uL; Basophils % (auto) 0.2 % (0.0-2.0); Eosinophils # (auto) 0.2 uL; Eosinophils % (auto) 1.9 % (0.0-7.0); Hematocrit 40.9 % (36.0-46.0); Hemoglobin 13.9 g/dL (12.2-16.2); Lymphocytes # (auto) 2.3 uL; Lymphocytes % (auto) 26.6 % (10.0-50.0); Mean Corpuscular Hemoglobin 30.3 pg (28.0-32.0); Mean Corpuscular Volume 89.3 fL (80.0-100.0); Monocytes # (auto) 0.8 uL; Monocytes % (auto) 8.9 % (0.0-12.0); Neutrophils # (auto) 5.3 uL; Neutrophils % (auto) 62.4 % (37.0-80.0); Platelet Count (auto) 188 10^3/uL (140-450); Red Blood Cells 4.58 10^6/uL (4.0-5.20); Red Cell Distribution Width 13.3 % (11.8-14.3); White Blood Cell 8.5 10^3/uL (4.4-10.8)
[2018-06-24 06:14] LABS: Anion Gap 7 (5-15); BUN/Creatinine Ratio 22.4; Blood Urea Nitrogen 13 mg/dL (7-18); Calcium 8.2 mg/dL (8.5-10.1); Carbon Dioxide 27 mmol/L (21-32); Chloride 110 mmol/L (98-107); GFR African American 138 mL/min; GFR Non-African American 114 mL/min; Glucose 81 mg/dL (74-106); Potassium 3.7 mmol/L (3.5-5.1); Sodium 144 mmol/L (136-145)
[2018-06-24 08:00] VITALS: BP 101/58
[2018-06-24] MEDS: ONDANSETRON HCL 4 MG/2 ML VIAL IV PRN (08:12)
[2018-06-24] MEDS ORDERED: HYDROcodone-ACET 5/325MG TAB PO PRN (08:45)
[2018-06-24 09:00] VITALS: BP 101/58
[2018-06-24] MEDS: IPRATROPIUM BROM 0.5 MG/2.5ML INH SOL NEB PRN (09:43)
[2018-06-24] MEDS: FAMOTIDINE 20 MG TAB PO SCH (09:57)
[2018-06-24] MEDS ORDERED: buPROPion HCL 75 MG TAB PO SCH (10:00)
[2018-06-24 13:00] VITALS: BP 100/42
== END 2018-06-24 16:20 | disposition left against medical advice (07) | DRG 198 ==
LOC: ER 15:27 → TELE 20:57 → TELE-WESTW 22:26
PROVIDERS: ADMIT Nurse Practitioner; ATTEND Internal Medicine
DX: I24.9 Acute ischemic heart disease, unspecified (principal); I48.0 Paroxysmal atrial fibrillation; E78.5 Hyperlipidemia, unspecified; G43.909 Migraine, unspecified, not intractable, without status migrainosus; F12.90 Cannabis use, unspecified, uncomplicated; I25.10 Atherosclerotic heart disease of native coronary artery without angina pectoris; F41.9 Anxiety disorder, unspecified; F17.210 Nicotine dependence, cigarettes, uncomplicated; Z53.21 Procedure and treatment not carried out due to patient leaving prior to being seen by health care provider; I10 Essential (primary) hypertension; I25.2 Old myocardial infarction; Z80.0 Family history of malignant neoplasm of digestive organs; Z82.49 Family history of ischemic heart disease and other diseases of the circulatory system; Z87.11 Personal history of peptic ulcer disease; Z83.3 Family history of diabetes mellitus; Z90.710 Acquired absence of both cervix and uterus; Z88.8 Allergy status to other drugs, medicaments and biological substances
CPT/HCPCS: 36415; 70450; 71046; 80048; 80053; 83880; 84484; 85025; 85379; 85610; 85730; 93005; 94640; G0378; J2405

== ENCOUNTER 2021-01-16 14:38 | Emergency (ER) | payer MEDICAID ==
[~2021-01-16] VITALS: Ht 165.1 cm; Wt 71.7 kg
[~2021-01-16 14:38] MED LIST changes: -BUP75T PO; -HYDR-4683 PO; -ZOLP-158 PO
[2021-01-16 14:55] VITALS: BP 99/63
[2021-01-16 15:40] LABS: Basophils # (auto) 0 10 ^3/uL (0-0.2); Basophils % (auto) 0.3 % (0.0-2.0); Eosinophils # (auto) 0.2 10 ^3/uL (0-0.8); Eosinophils % (auto) 2.4 % (0.0-7.0); Hematocrit 35.3 % (36.0-46.0); Hemoglobin 11.9 g/dL (12.2-16.2); Lymphocytes # (auto) 1.9 10 ^3/uL (0.4-5.4); Lymphocytes % (auto) 26.7 % (10.0-50.0); Mean Corpuscular Hemoglobin 28.7 pg (28.0-32.0); Mean Corpuscular Hgb Conc. 33.6 g/dL (32.0-36.0); Mean Corpuscular Volume 85.6 fL (80.0-100.0); Monocytes # (auto) 0.7 10 ^3/uL (0-1.3); Monocytes % (auto) 9.3 % (0.0-12.0); Neutrophils # (auto) 4.4 10 ^3/uL (1.6-8.6); Neutrophils % (auto) 61.3 % (37.0-80.0); Nucleated Red Blood Cells % 0.1 %; Red Blood Cells 4.12 10^6/uL (4.0-5.20); Red Cell Distribution Width 13.7 % (11.8-14.3); White Blood Cell 7.1 10^3/uL (4.4-10.8)
[2021-01-16 15:55] LABS: Potassium 3.7 mmol/L (3.5-5.1)
[2021-01-16 16:00] LABS: Albumin 3.3 g/dL (3.4-5.0); BUN/Creatinine Ratio 15.6; Calcium 8.4 mg/dL (8.5-10.1)
[2021-01-16 16:04] LABS: Bilirubin, Total 0.4 mg/dL (0.2-1.0); Total Protein 6.5 g/dL (6.4-8.2)
== END 2021-01-16 19:08 | disposition left against medical advice (07) ==
LOC: ER 14:38
DX: R42 Dizziness and giddiness (principal); D64.9 Anemia, unspecified
CPT/HCPCS: 36415; 80053; 84484; 85025; 93005